=== PATIENT | female | born 1975 | race American Indian/Alaskan Native ===

== ENCOUNTER 2018-02-13 13:36 | Day surgery (SDC) | payer MEDICARE, MEDICAID ==
[2018-02-13 14:12] VITALS: BP 107/63; PULSE 68; RESP 18; TEMP 98
[2018-02-13] MEDS ORDERED: Lidocaine 1% 20 MG/2 ML PF AMP ONE (14:50)
[2018-02-13] MEDS ORDERED: Bupivacaine 0.25% 20 ML INJ IJ ONE (14:53)
[2018-02-13] MEDS ORDERED: Iohexol 240 (50 ml) ONE (14:53)
[2018-02-13] MEDS ORDERED: Lidocaine 1% Inj (20ml) INFIL ONE (15:03)
[2018-02-13] MEDS ORDERED: Bupivacaine HCl 0.25% PF (10 ml) Inj EPI ONE (15:04)
[2018-02-13] MEDS ORDERED: Iohexol 240 (50 ml) IVP ONE (15:04)
[2018-02-13] MEDS ORDERED: Midazolam 2 MG/2 ML VIAL ONE (15:16)
[2018-02-13] MEDS ORDERED: Propofol 10 mg/ml Inj (20 ML) ONE (15:20)
[2018-02-13 16:02] VITALS: O2SAT 100
--- NOTE | 2018-02-14 06:09 | OP ---
PROCEDURE DATE: 02/13/2018 INJECTATE: A total of 5.0 cc; consisting of 2.0 cc of dexamethasone (10 mg/cc), with the remainder of 0.25% Marcaine. LEVELS INJECTED: Bilateral L3-L5 medial branches. APPROACH: Posterior extradural. COMMENTS: N/A. FINDINGS: No vascular uptake noted on use of contrast. PROCEDURE: The history and physical were reviewed. History and neuromuscular physical examination findings within 30 days were reviewed and confirmed. The patient was actively involved throughout the procedure. Allergies to medications and contrast dye were reviewed and a medication reconciliation review was performed as well. The patient was prepped and draped in a sterile fashion in the prone position after informed consent was read again to the patient and signed and questions if any were answered including the risks, benefits, alternative treatment options, and prognosis. The C-arm was positioned so that the anatomic regions corresponding to the medial branches as noted above were visualized. The soft tissues overlying this structure were infiltrated with 2 to 3 cc of 1% lidocaine without epinephrine. A 22-gauge spinal needle was inserted toward the targets using "trajectory" views along the fluoroscope beam. Under AP and lateral visualization, each needle was advanced to the appropriate location. Biplanar projections were used to confirm position. Aspiration was confirmed to be negative for CSF and/or blood. Radiographs were obtained for documentation purposes. Omnipaque-300 contrast was used to assess for vascular uptake and after no abnormal flow was detected, a 1 cc test dose of 1% lidocaine was injected. The patient was observed for 90 seconds post injection. After no sensory deficits were reported, and normal extremity motor function was noted, the above injectate was administered so that equal amounts of the injectate were placed at each level. The patient tolerated the procedure well and was sent to recover room. The patient was discharged after an appropriate period of observation. Discharge instructions were given. If there are any complications, the patient was instructed to call us. The patient is to follow up with the requesting physician within one to two weeks to discuss candidacy for RFA. Improvement after today's procedure: The patient reported subjective improvement in lower back pain, but no improvement in groin pain immediately post procedure. Ariz MD Ketan
--- NOTE | 2018-02-15 17:45 | RAD ---
Date of service: 02/13/2018 PROCEDURE: Intraoperative Fluoroscopy. HISTORY: LUMBAR RADICULOPATHY FINDINGS: Fluoroscopic assistance was provided for low epidural steroid injection.. Please refer to the operative report from GERRY Camilo, , MD SAWYER. Total fluoroscopic time (continuous mode) utilized during the procedure 72.2 (seconds). Total exam DLP: 9.73 (mGy)
== END 2018-02-13 16:41 | disposition home or self-care (01) ==
LOC: C.SDS 13:36
PROVIDERS: ATTEND Neuromusculoskeletal Medicine, Sports Medicine
DX: M47.817 Spondylosis without myelopathy or radiculopathy, lumbosacral region (principal)
CPT/HCPCS: 62322; 82948; J1100; J2250; J2704; J3010; Q9966